=== PATIENT | female | born 1935 | race Asian ===

== ENCOUNTER 2017-11-01 11:37 | Emergency (ER) | payer MEDICARE ==
[~2017-11-01] VITALS: Ht 152.4 cm; Wt 44.9 kg
[2017-11-01 11:39] VITALS: BP 138/60
--- NOTE | 2017-11-01 11:39 | NUR ---
1032 PT BROUGHT IN BY [facility] TO BED 10
[2017-11-01] MEDS ORDERED: ALBUTEROL SULFATE/IPRATROPIU 3 ML SOL IH ONE ×2 (11:50)
[2017-11-01] MEDS ORDERED: PRON INH (11:58)
[2017-11-01] MEDS ORDERED: ATRN INH (11:58)
[2017-11-01] MEDS ORDERED: ATOR10TA PO (11:58)
[2017-11-01] MEDS ORDERED: ASPI-1129 PO (11:58)
[2017-11-01] MEDS ORDERED: MONT10TA35 PO (11:58)
[2017-11-01] MEDS ORDERED: FLUT1DSK4 IH (11:58)
[2017-11-01] MEDS ORDERED: MULT-153 PO (11:58)
--- NOTE | 2017-11-01 12:00 | NUR ---
PATIENT TRA [facility] DUE TO SOB X TODAY . PT STATES THEY CAHNGE HER MEDICINE THAT'S WHY SHE'S HAVING TROUBLE BREATHING;PT HAS A PRODUCTIVE COUGH;. DENIES N/V/D; SKIN IS PINK/WARM/DRY; AAOX4;HR EVEN AND REGULAR; PT DENIES ANY FEVER, CP AT THIS TIME; PATIENT STATES PAIN OF 0/10 AT THIS TIME;PATIENT POSITIONED FOR COMFORT; HOB ELEVATED; BEDRAILS UP X2; BED DOWN. ER MD MADE AWARE OF PT STATUS.
--- NOTE | 2017-11-01 12:05 | NUR ---
ARTERIAL BLOOD GAS DONE
--- NOTE | 2017-11-01 12:08 | NUR ---
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
[2017-11-01 12:25] LABS: BASOPHILS % (AUTO) 0.7 % (0.0-2.0); EOSINOPHILS # (AUTO) 0.1 K/uL (0-0.4); EOSINOPHILS % (AUTO) 1.5 % (0.0-4.0); HEMATOCRIT 33.6 % (36-48); HEMOGLOBIN 10.6 g/dL (12.0-16.0); LYMPHOCYTES # (AUTO) 1.8 K/uL (2.5-16.5); LYMPHOCYTES % (AUTO) 27.1 % (20.5-51.1); MEAN CORPUSCULAR HEMOGLOBIN 24 pg (27-31); MEAN CORPUSCULAR HGB CONC 31 g/dL (33-37); MEAN CORPUSCULAR VOLUME 75 fL (80-94); MONOCYTES # (AUTO) 0.9 K/uL (0.8-1.0); MONOCYTES % (AUTO) 14.1 % (1.7-9.3); NEUTROPHILS # (AUTO) 3.8 K/uL (1.8-7.7); NEUTROPHILS % (AUTO) 56.6 % (42.2-75.2); PLATELET COUNT (AUTO) 234 K/uL (140-450); RED BLOOD CELL COUNT(AUTO) 4.47 MIL/uL (4.20-5.40); RED CELL DISTRIBUTION WIDTH 19.6 % (11.6-13.7); WHITE BLOOD COUNT (AUTO) 6.6 K/uL (4.8-10.8)
[2017-11-01 12:35] LABS: PROTHROMBIN TIME 10.7 secs (10.8-13.4)
[2017-11-01 12:49] LABS: ANION GAP 9.9 (8-16); CHLORIDE 100 mmol/L (98-107); CREATININE 0.7 mg/dL (0.6-1.3); GLUCOSE 127 mg/dL (74-106); POTASSIUM 3.9 mmol/L (3.5-5.1); SODIUM SERUM 135 mmol/L (136-145); UREA NITROGEN, BLOOD 13 mg/dL (7-18)
[2017-11-01 12:55] LABS: ALBUMIN 3.4 g/dL (3.4-5.0); ASPARTATE AMINOTRANSFERASE 28 U/L (15-37); TOTAL BILIRUBIN 0.3 mg/dL (0.0-1.0)
--- NOTE | 2017-11-01 13:43 | NUR ---
PT BROUGHT BACK FROM CT
--- NOTE | 2017-11-01 13:49 | NUR ---
PT ASKED FOR A SNACK"I'M HUNGRY CAN YOU GIVE ME SOMETHING TO EAT"?OFFERED SOME WATER AND CRACKERS.
[2017-11-01] MEDS ORDERED: PIPERACILLIN/TAZOBACTAM 3.375 GM in DEXTROSE 5% 50 ML IV ONE (14:05)
[2017-11-01] MEDS ORDERED: PIPERACILLIN/TAZOBACTAM 3.375 GM VIAL IV ONE (14:19)
[2017-11-01] MEDS ORDERED: PIPER/TAZO 3.375GM/D5W PREMIX 50 ML IV SCH (14:25)
--- NOTE | 2017-11-01 14:26 | NUR ---
CALLED PHARMACY FOR THE D5 50 ML;THEY SAID THEY WILL BRING A PREMIX;ZOSYN VIAL WAS GIVEN TO ALFA BASS;
[2017-11-01] MEDS ORDERED: methylPREDNISolone SS 125 MG/2 ML VIAL IVP ONE (14:35)
--- NOTE | 2017-11-01 15:20 | NUR ---
Patient to be transferred to [facility]. Is being transferred due to INSURANCE REQUEST. Receiving facility has accepting physician and available space. ER physician has signed transfer form. Patient or responsible green party has agreed to transfer and signed form. Patient belongings inventoried and will be sent with patient. Copy of nursing notes, lab reports, EKG, Physicians Orders and X-rays to be sent with patient. Report called to at receiving facility. [facility] service has been called for transfer. ETA is 1555.
--- NOTE | 2017-11-01 15:26 | NUR ---
TRANSPORT TO [facility] ARRIVED FOR PT
--- NOTE | 2017-11-01 15:37 | NUR ---
PT LEFT WITH TRANSFER CREW TO [facility]
[2017-11-01 15:39] VITALS: BP 133/58
== END 2017-11-01 15:37 | disposition home or self-care (01) ==
LOC: MED 11:37
DX: J45.901 Unspecified asthma with (acute) exacerbation (principal); E78.5 Hyperlipidemia, unspecified; Z79.899 Other long term (current) drug therapy; Z88.5 Allergy status to narcotic agent; Z88.8 Allergy status to other drugs, medicaments and biological substances; Z79.82 Long term (current) use of aspirin
CPT/HCPCS: 36415; 36600; 71045; 71260; 80053; 82803; 83880; 84484; 85025; 85610; 85730; 94640; 96365; 96375; 99285; J2543; J2930; J7030; J7620; Q0092; Q9967

== ENCOUNTER 2021-11-04 11:17 | Emergency (ER) | payer MEDICARE ==
[~2021-11-04] VITALS: Ht 144.8 cm; Wt 45.0 kg
[~2021-11-04 11:17] MED LIST: ASPI-1129 PO; ATOR10TA PO; ATRN INH; FLUT1DSK4 IH; MONT10TA35 PO; MULT-2112 PO; PRON INH
[2021-11-04 11:31] VITALS: BP 125/68
--- NOTE | 2021-11-04 11:58 | NUR ---
PT AMBULATED TO BED 11
[2021-11-04 12:36] LABS: BASOPHILS # (AUTO) 0.1 K/uL (0.00-0.22); BASOPHILS % (AUTO) 1.3 % (0.0-2.0); EOSINOPHILS # (AUTO) 0.3 K/uL (0-0.4); EOSINOPHILS % (AUTO) 4.3 % (0.0-4.0); HEMOGLOBIN 12.1 g/dL (12.0-16.0); LYMPHOCYTES # (AUTO) 2.2 K/uL (2.5-16.5); LYMPHOCYTES % (AUTO) 32.4 % (20.5-51.1); MEAN CORPUSCULAR HEMOGLOBIN 28 pg (27-31); MEAN CORPUSCULAR HGB CONC 32 g/dL (33-37); MEAN CORPUSCULAR VOLUME 88.5 fL (80-94); MONOCYTES # (AUTO) 0.5 K/uL (0.8-1.0); MONOCYTES % (AUTO) 7.1 % (1.7-9.3); NEUTROPHILS # (AUTO) 3.7 K/uL (1.8-7.7); NEUTROPHILS % (AUTO) 54.9 % (42.2-75.2); PLATELET COUNT (AUTO) 178 K/uL (140-450); RED BLOOD CELL COUNT(AUTO) 4.29 MIL/uL (4.20-5.40); RED CELL DISTRIBUTION WIDTH 14.6 % (11.6-13.7); WHITE BLOOD COUNT (AUTO) 6.7 K/uL (4.8-10.8)
[2021-11-04 12:39] LABS: ALBUMIN 3.8 g/dL (3.4-5.0); ANION GAP 9.4 (8-16); ASPARTATE AMINOTRANSFERASE 24 U/L (15-37); CARBON DIOXIDE 31.4 mmol/L (21-32); CHLORIDE 102 mmol/L (98-107); CREATININE 0.8 mg/dL (0.6-1.3); GLUCOSE 122 mg/dL (74-106); LIPASE 155 U/L (73-393); POTASSIUM 3.8 mmol/L (3.5-5.1); SODIUM SERUM 139 mmol/L (136-145); TOTAL BILIRUBIN 0.5 mg/dL (0.0-1.0); UREA NITROGEN, BLOOD 14 mg/dL (7-18)
--- NOTE | 2021-11-04 13:00 | NUR ---
86 Y/O F BIB [employer] DIRECT[employer] FROM [facility] C/O FEET DISCOLORATION X 1 YEAR. PT FEET DO NOT APPEAR SWOLLEN, SKIN IS INTACT, PT HAS FULL SENSATION, PEDAL PULSES +2. PT AMBULATES WITH ASSISTIVE DEVICE, STEADY GAIT. PT C/ O INTERMITTENT ABDOMINAL PAIN AND DIZZINESS, DENIES ANY FALL/SYNCOPE. PT DENIES PAIN AT THIS TIME. ABD IS FLAT, SOFT, AND NONTENDER, ACTIVE BOWEL SOUNDS X 4 QUAD. PT DENIES N/V/D. A&O X 4, EVEN AND UNLABORED RESPIRATIONS. PMDHX: DM HTN
[2021-11-04] MEDS: predniSONE 20 MG TAB PO ONE (13:22)
--- NOTE | 2021-11-04 13:22 | NUR ---
RT AT THE BEDSIDE FOR BREATHING TX.
[2021-11-04] MEDS: ALBUTEROL SULFATE/IPRATROPIU 3 ML SOL IH ONE ×2 (13:29)
[2021-11-04] MEDS ORDERED: PRED20TA5 PO (13:40)
--- NOTE | 2021-11-04 13:43 | NUR ---
Patient discharged with v/s stable. Written and verbal after care instructions ABOUT CHRONIC VENOUS INSUFFICIENCY AND COPD given and explained. Patient verbalized understanding. Ambulatory with steady gait.[facility] TRANSPORT PICKED UP PT All questions addressed prior to discharge. Advised to follow up with PMD.
[2021-11-04 13:44] VITALS: BP 49/63
--- NOTE | 2021-11-04 13:45 | NUR ---
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 PT FEET DO NOT APPEAR SWOLLEN, SKIN IS INTACT, PT HAS FULL SENSATION, PEDAL PULSES +2. PT AMBULATES WITH ASSISTIVE DEVICE, STEADY GAIT. PT C/ O INTERMITTENT ABDOMINAL PAIN AND DIZZINESS, DENIES ANY FALL/SYNCOPE. PT DENIES PAIN AT THIS TIME. ABD IS FLAT, SOFT, AND NONTENDER, ACTIVE BOWEL SOUNDS X 4 QUAD. PT DENIES N/V/D. A&O X 4, EVEN AND UNLABORED RESPIRATIONS. PMDHX: DM HTN
== END 2021-11-04 13:43 | disposition home or self-care (01) ==
LOC: MED 11:17
DX: J44.1 Chronic obstructive pulmonary disease with (acute) exacerbation (principal); I87.8 Other specified disorders of veins; Z79.899 Other long term (current) drug therapy; Z88.5 Allergy status to narcotic agent; Z88.6 Allergy status to analgesic agent; Z88.8 Allergy status to other drugs, medicaments and biological substances
CPT/HCPCS: 36415; 71045; 80053; 81002; 83690; 84484; 85025; 93005; 99285; J7512; Q0092

== ENCOUNTER 2021-11-16 10:10 | Emergency (ER) | payer MEDICARE ==
[~2021-11-16] VITALS: Ht 142.2 cm; Wt 44.9 kg
[~2021-11-16 10:10] MED LIST changes: +PRED20TA5 PO
[2021-11-16 10:14] VITALS: BP 164/100
--- NOTE | 2021-11-16 10:24 | NUR ---
PT AMBULATED TO BED, WITH FWW, STEADY GAIT
--- NOTE | 2021-11-16 11:05 | NUR ---
PT C/O RIGHT EYE BLURRINESS, ALSO HEAD INJURY S/P FALL X4 DAYS AGO. DENIES LOC. [facility]CS 15. PENDING ER MD STEPHENS.
--- NOTE | 2021-11-16 12:51 | NUR ---
PT TAKEN TO CT SCAN VIA W/C
[2021-11-16 13:33] VITALS: BP 144/70
--- NOTE | 2021-11-16 13:33 | NUR ---
Patient discharged with v/s stable. Written and verbal after care instructions given and explained. Patient verbalized understanding. Ambulatory with steady gait. All questions addressed prior to discharge. Advised to follow up with PMD.
== END 2021-11-16 13:33 | disposition home or self-care (01) ==
LOC: MED 10:10
DX: S09.90XA Unspecified injury of head, initial encounter (principal); J44.9 Chronic obstructive pulmonary disease, unspecified; E11.9 Type 2 diabetes mellitus without complications; I10 Essential (primary) hypertension; Z88.5 Allergy status to narcotic agent; Z88.6 Allergy status to analgesic agent; Z88.8 Allergy status to other drugs, medicaments and biological substances; Z79.899 Other long term (current) drug therapy; Z79.82 Long term (current) use of aspirin; W19.XXXA Unspecified fall, initial encounter; Y93.89 Activity, other specified; Y92.89 Other specified places as the place of occurrence of the external cause; Y99.8 Other external cause status
CPT/HCPCS: 70450; 99284

== ENCOUNTER 2023-01-16 14:25 | Emergency (ER) | payer MEDICARE ==
[~2023-01-16] VITALS: Ht 152.4 cm; Wt 45.4 kg
[2023-01-16 14:25] VITALS: BP 128/75
[~2023-01-16 14:25] MED LIST changes: +MONT-72 PO; -MONT10TA35 PO
--- NOTE | 2023-01-16 15:10 | NUR ---
AMB. TO BED W NO DISTRESS.
--- NOTE | 2023-01-16 15:54 | NUR ---
Pt taken to CT via rana.
[2023-01-16 15:56] LABS: BASOPHILS % (AUTO) 0.4 % (0.0-2.0); EOSINOPHILS # (AUTO) 0.1 K/uL (0-0.4); EOSINOPHILS % (AUTO) 1.5 % (0.0-4.0); HEMATOCRIT 31.9 % (36-48); HEMOGLOBIN 10.2 g/dL (12.0-16.0); LYMPHOCYTES # (AUTO) 1.7 K/uL (2.5-16.5); MEAN CORPUSCULAR HEMOGLOBIN 28 pg (27-31); MEAN CORPUSCULAR HGB CONC 32 g/dL (33-37); MEAN CORPUSCULAR VOLUME 86.9 fL (80-94); MONOCYTES # (AUTO) 0.7 K/uL (0.8-1.0); MONOCYTES % (AUTO) 7.8 % (1.7-9.3); NEUTROPHILS # (AUTO) 6.7 K/uL (1.8-7.7); NEUTROPHILS % (AUTO) 72.3 % (42.2-75.2); PLATELET COUNT (AUTO) 260 K/uL (140-450); RED BLOOD CELL COUNT(AUTO) 3.68 MIL/uL (4.20-5.40); RED CELL DISTRIBUTION WIDTH 14.1 % (11.6-13.7); WHITE BLOOD COUNT (AUTO) 9.3 K/uL (4.8-10.8)
--- NOTE | 2023-01-16 16:09 | NUR ---
Pt returned from CT
[2023-01-16 16:25] LABS: ALBUMIN 3.1 g/dL (3.4-5.0); ANION GAP 9.2 (8-16); ASPARTATE AMINOTRANSFERASE 21 U/L (15-37); CARBON DIOXIDE 34.6 mmol/L (21-32); CHLORIDE 100 mmol/L (98-107); CREATININE 1.2 mg/dL (0.6-1.3); GLUCOSE 130 mg/dL (74-106); MAGNESIUM 1.8 mg/dL (1.8-2.4); PHOSPHORUS 4.9 mg/dL (2.5-4.9); SODIUM SERUM 141 mmol/L (136-145); THYROID STIMULATING HORMONE 3.85 uIU/mL (0.34-3.74); TOTAL BILIRUBIN 0.4 mg/dL (0.0-1.0); UREA NITROGEN, BLOOD 17 mg/dL (7-18)
[2023-01-16 16:30] LABS: APPEARANCE,URINE CLEAR (CLEAR); BILIRUBIN,URINE NEGATIVE (NEGATIVE); BLOOD, URINE 3+ (NEGATIVE); COLOR,URINE YELLOW (YELLOW); LEUKOCYTE ESTERASE ,URINE 2+ (NEGATIVE); NITRITE, URINE POSITIVE (NEGATIVE); UGLUCOSE NEGATIVE (NEGATIVE)
[2023-01-16 16:31] LABS: POTASSIUM 2.8 mmol/L (3.5-5.1)
[2023-01-16 16:56] LABS: RBC,URINE 11-20 (MOD) /HPF (0-5)
[2023-01-16] MEDS ORDERED: KCL 20 MEQ IN 100 mL PREMIX 200 ML IV ONE (17:00)
[2023-01-16] MEDS ORDERED: NACL 0.9% 1,000 ML IV ONE (17:00)
[2023-01-16 18:00] VITALS: BP 90/45
[2023-01-16] MEDS ORDERED: cefTRIAXone 1,000 MG VIAL ONE (18:17)
--- NOTE | 2023-01-16 19:04 | NUR ---
Report given to [facility]. Awaiting transport.
--- NOTE | 2023-01-16 19:18 | NUR ---
report given to [facility] transport. Pt aware and agreeable to transfer. Pt transported with all belongings.
--- NOTE | 2023-01-16 19:37 | NUR ---
PT TAKEN BY [facility] TRANSPORT
== END 2023-01-16 19:37 | disposition short-term general hospital (02) ==
LOC: MED 14:25
DX: R53.1 Weakness (principal); Z20.822 Contact with and (suspected) exposure to COVID-19; N39.0 Urinary tract infection, site not specified; E87.6 Hypokalemia; E83.52 Hypercalcemia; E11.9 Type 2 diabetes mellitus without complications; I10 Essential (primary) hypertension; J45.909 Unspecified asthma, uncomplicated; I25.10 Atherosclerotic heart disease of native coronary artery without angina pectoris; Z79.4 Long term (current) use of insulin; Z79.899 Other long term (current) drug therapy; Z88.5 Allergy status to narcotic agent; Z88.8 Allergy status to other drugs, medicaments and biological substances
CPT/HCPCS: 36415; 70450; 71045; 80053; 81001; 83735; 83880; 84100; 84443; 84484; 85025; 87040; 87086; 87426; 87804; 96365; 99285; J0696; J3480; J7030; Q0092

== ENCOUNTER 2023-11-04 03:48 | Emergency (ER) | payer MEDICARE, MEDICAID ==
[~2023-11-04] VITALS: Ht 149.9 cm; Wt 40.8 kg
[2023-11-04 04:00] VITALS: BP 168/60; PULSE 74; RESP 16; TEMP 98.7; O2SAT 96
[2023-11-04 06:13] LABS: BASOPHILS # (AUTO) 0.1 K/uL (0.00-0.22); BASOPHILS % (AUTO) 0.7 % (0.0-2.0); EOSINOPHILS % (AUTO) 0.5 % (0.0-4.0); HEMATOCRIT 31.7 % (36-48); HEMOGLOBIN 10.4 g/dL (12.0-16.0); LYMPHOCYTES # (AUTO) 0.9 K/uL (2.5-16.5); MEAN CORPUSCULAR HEMOGLOBIN 27 pg (27-31); MEAN CORPUSCULAR HGB CONC 33 g/dL (33-37); MEAN CORPUSCULAR VOLUME 82.8 fL (80-94); MONOCYTES # (AUTO) 0.6 K/uL (0.8-1.0); MONOCYTES % (AUTO) 6.8 % (1.7-9.3); NEUTROPHILS # (AUTO) 7.4 K/uL (1.8-7.7); PLATELET COUNT (AUTO) 285 K/uL (140-450); RED BLOOD CELL COUNT(AUTO) 3.83 MIL/uL (4.20-5.40); RED CELL DISTRIBUTION WIDTH 15.8 % (11.6-13.7)
[2023-11-04 06:27] LABS: ALANINE AMINOTRANSFERASE 23 U/L (12-78); ALKALINE PHOSPHATASE 61 U/L (50-136); ANION GAP 13.4 (8-16); ASPARTATE AMINOTRANSFERASE 31 U/L (15-37); CARBON DIOXIDE 25.4 mmol/L (21-32); CHLORIDE 103 mmol/L (98-107); CREATINE KINASE, TOTAL 192 U/L (26-192); CREATININE 3.8 mg/dL (0.6-1.3); GLUCOSE 109 mg/dL (74-106); POTASSIUM 3.8 mmol/L (3.5-5.1); SODIUM SERUM 138 mmol/L (136-145); TOTAL BILIRUBIN 0.3 mg/dL (0.0-1.0); TOTAL PROTEIN, SERUM 9.4 g/dL (6.4-8.2); UREA NITROGEN, BLOOD 58 mg/dL (7-18)
[2023-11-04] MEDS: NACL 0.9% 500 ML IV ONE (06:53)
[2023-11-04 07:22] VITALS: O2SAT 97
[2023-11-04] MEDS: NACL 0.9% 1,000 ML IV ONE (09:06)
[2023-11-04 09:51] VITALS: O2SAT 97
[2023-11-04 10:10] LABS: BILIRUBIN,URINE NEGATIVE (NEGATIVE); BLOOD, URINE 3+ (NEGATIVE); COLOR,URINE YELLOW (YELLOW); LEUKOCYTE ESTERASE ,URINE 3+ (NEGATIVE); NITRITE, URINE NEGATIVE (NEGATIVE); PROTEIN,URINE 3+ (NEGATIVE); UGLUCOSE NEGATIVE (NEGATIVE); UROBILINOGEN,URINE 0.2 EU/dL (0.2 - 1)
[2023-11-04 10:13] LABS: APPEARANCE,URINE SLIGHTLY CLOUDY (CLEAR); RBC,URINE 11-20 (MOD) /HPF (0-5)
[2023-11-04 10:14] LABS: BACTERIA,URINE 3+ /HPF (None Seen); MUCUS,URINE None Seen /LPF (None Seen); SQUAMOUS EPITHELIAL CELL,UR 4-10 (MOD) /LPF (0-3 (FEW)); WBC,URINE 16-25 (MOD) /HPF (0-5)
[2023-11-04] MEDS ORDERED: cefTRIAXone 1,000 MG VIAL ONE (11:20)
[2023-11-04 14:45] VITALS: O2SAT 97
[2023-11-04 14:54] VITALS: BP 173/73; PULSE 73; RESP 15; TEMP 98.3; O2SAT 98
== END 2023-11-04 14:54 | disposition short-term general hospital (02) ==
LOC: MED 03:48
DX: R55 Syncope and collapse (principal); Z20.822 Contact with and (suspected) exposure to COVID-19; M54.2 Cervicalgia; J45.909 Unspecified asthma, uncomplicated; I11.9 Hypertensive heart disease without heart failure; E11.9 Type 2 diabetes mellitus without complications; J44.9 Chronic obstructive pulmonary disease, unspecified; Z88.5 Allergy status to narcotic agent; Z79.1 Long term (current) use of non-steroidal anti-inflammatories (NSAID); Z88.8 Allergy status to other drugs, medicaments and biological substances; Z79.4 Long term (current) use of insulin; Z79.899 Other long term (current) drug therapy; W18.30XA Fall on same level, unspecified, initial encounter; Y93.89 Activity, other specified; Y92.89 Other specified places as the place of occurrence of the external cause; Y99.8 Other external cause status
CPT/HCPCS: 36415; 70450; 71045; 72125; 80053; 81001; 82550; 84484; 85025; 87086; 87426; 93005; 96361; 96365; 99285; J0696; J7030; Q0092